=== PATIENT | female | born 1985 | race Caucasian/White ===

== ENCOUNTER 2016-03-02 13:00 | Emergency (ER) | payer MEDICAID ==
[2016-03-02 13:24] VITALS: BP 116/78; PULSE 90; RESP 14; O2SAT 97
--- NOTE | 2016-03-02 14:09 | DX ---
Left Shoulder, Three Views 1:43 p.m. Clinical History: 30-year-old female with pain after a fall. Comparison Study: None. Findings: Bone mineralization is preserved . The glenohumeral and acromioclavicular joints are anatom ically aligned. The acromiohumeral and coracoclavicular distances are appropriate. The scapula is int act, as are the visualized portions of the left rib cage. There is a mild thoracic curvature. Impression: There is no acute osseous abnormality identified. If there is further clinical concern regarding the patient's shoulder pain, consider MR imaging.
--- NOTE | 2016-03-02 14:39 | UCPHY ---
H & P Time Seen by Provider: 03/02/16 13:16 Patient Type: Established HPI/ROS: 30-year-old female presents complaining of difficulty moving her left shoulder she is concerned she may have a shoulder dislocation, she injured approximately 2 weeks ago when she was dragged by her new 65 lb Greyhound dog while out on a walk on his retractable leash, she states she then again re-injured it today when she slipped on some ice behind the dumpster is a at her condominium today. Review of systems General no fever no chills no weakness HEENT no eye pain no eye discharge. No eye redness, no sore throat Respiratory no cough, no shortness of breath Cardiac no chest pain, no peripheral edema GI no abdominal pain, no diarrhea, no constipation, no nausea, no vomiting no flank pain, no hematuria, no dysuria Musculoskeletal positivemyalgias, Positive joint pain Heme no easy bruising, no easy bleeding Endo no polyuria, no polydipsia Skin no rashes, no pruritus Neuro no syncope, no dizziness, no headaches Psych is no suicidal ideation, no homicidal ideation Past Medical/Surgical History: anxiety depression Social History: denies alcohol or drug use Smoking Status: Heavy smoker Physical Exam: 30-year-old female alert and oriented in moderate distress secondary to left shoulder pain atraumatic normocephalic neck supple lungs clear to auscultation bilaterally left shoulder positive AC tenderness, decreased range of motion secondary to pain, no gross deformity no evidence of dislocation distal pulses intact, good range of motion at elbow wrist digits, sensation intact Constitutional: Initial Vital Signs Heart Rate 90 03/02/16 13:21 Respiratory Rate 14 03/02/16 13:21 Blood Pressure 116/78 03/02/16 13:21 O2 Sat (%) 97 03/02/16 13:21 O2 Delivery Mode Room Air Allergies/Adverse Reactions: amoxicillin [Amoxicillin] Allergy (Severe, Verified 03/02/16 13:25) Anaphylaxis cephalexin monohydrate [From Keflex] Allergy (Severe, Verified 03/02/16 13:25) Anaphylaxis hydrocodone bitartrate [From Vicodin] Allergy (Severe, Verified 03/02/16 13:25) Anaphylaxis iodine [Iodine] Allergy (Severe, Verified 03/02/16 13:25) Anaphylaxis latex [Latex] Allergy (Severe, Verified 03/02/16 13:25) Anaphylaxis povidone-iodine [From Betadine] Allergy (Severe, Verified 03/02/16 13:25) Anaphylaxis soap [From Betadine] Allergy (Severe, Verified 03/02/16 13:25) Anaphylaxis pregabalin [From Lyrica] Allergy (Mild, Verified 03/02/16 13:25) Rash fluoxetine HCl [From Prozac] Allergy (Verified 03/02/16 13:25) Sulfa (Sulfonamide Antibiotics) Allergy (Verified 03/02/16 13:25) sumatriptan [From Imitrex] Allergy (Verified 03/02/16 13:25) sumatriptan succinate [From Imitrex] Allergy (Verified 03/02/16 13:25) migergot Allergy (Uncoded 03/02/16 13:25) Home Medications: Medication Instructions Recorded Albuterol 10/14/14 Ativan 10/14/14 CLONAZEPAM 10/14/14 Epinephrine 10/14/14 KETOROLAC TROMETHAMINE 10/14/14 Metoclopramide 10/14/14 Omeprazole 10/14/14 Oxycodone Ir 10/14/14 clonazePAM [klonoPIN (*)] 1 mg PO HS #3 tab 01/13/15 AZITHROMYCIN [Z-PACK] 250 mg PO DAILY #6 tab 12/24/15 predniSONE 60 mg PO DAILY #9 tab 12/24/15 Medical Decision Making - Diagnostics Imaging: left shoulder film no dislocation, no fracture ED Course/Re-evaluation: patient seen and evaluated for left shoulder pain after a fall 2 weeks ago and repeat injury today impression acute left shoulder sprain, possible rotator cuff injury AC separation mild plan sling and swath / shoulder immobilizer patient advised to follow up with Orthopedics for further evaluation of her shoulder Departure - Departure Disposition: Home, Routine, Self-Care Clinical Impression: Left shoulder strain, AC separation Condition: Good Instructions: Acromioclavicular Separation (ED), Shoulder Sprain (ED) [place]errals: [place],. [Primary Care Provider] - As per Instructions Julito Aiken MD [Medical Doctor] - As per Instructions - PQRS PQRS Measurement: na
== END 2016-03-02 15:25 | disposition home or self-care (01) ==
LOC: CED 13:00
DX: S43.402A Unspecified sprain of left shoulder joint, initial encounter (principal); W00.0XXA Fall on same level due to ice and snow, initial encounter; Y93.K1 Activity, walking an animal; Z72.0 Tobacco use
CPT/HCPCS: 73030-PO; 99214-PO; G0463-PO

== ENCOUNTER → 2016-07-13 | Outpatient (CLI) | payer MEDICAID | LOC: FIMAGING 12:56 | PROVIDERS: ATTEND Internal Medicine Hematology & Oncology | DX: R53.1 Weakness (principal) | CPT/HCPCS: 84481-90; G0472 ==

== ENCOUNTER 2016-07-19 13:14 | Emergency (ER) | payer MEDICAID ==
[2016-07-19] MEDS ORDERED: METOCLOPRAMIDE 10 MG/2 ML VIAL IVP ONE (13:31)
[2016-07-19] MEDS ORDERED: KETOROLAC 30 MG/1 ML SDV IVP ONE (13:31)
[2016-07-19] MEDS ORDERED: NS 1,000 ML IV ONE (13:31)
--- NOTE | 2016-07-19 13:36 | EDPHY ---
H & P Time Seen by Provider: 07/19/16 13:31 HPI/ROS: CHIEF COMPLAINT:Migraine headache HISTORY OF PRESENT ILLNESS: this is a 31-year-old female with history of migraine headaches who presents with headache that has been present since last night. She has taken Reglan and Ativan at home. She usually takes Reglan, Ativan, and Toradol but she is out of Toradol. Her headache Has persisted, prompting her to present to the emergency department. The headache is global with associated photophobia and nausea. She has not vomited. This headache is consistent with her previous migraine headaches. No fever or stiff neck. she denies weakness or numbness. REVIEW OF SYSTEMS: A ten point review of systems was performed and is negative with the exception of the items mentioned in the HPI. Source: Patient - Personal History Tetanus Vaccine Date: WITHIN 10 YRS - Medical/Surgical History Hx Asthma: Yes Hx Chronic Respiratory Disease: No Hx Diabetes: No Hx Cardiac Disease: No Hx Renal Disease: No Hx Cirrhosis: No Hx Alcoholism: No Hx HIV/AIDS: No Hx Splenectomy or Spleen Trauma: No Other PMH: Migraines. CHronic pain. mult allergies. [facility] Flu - Social History Smoking Status: Heavy smoker Additional Social History: She lives with family. She is single. - Physical Exam Exam: General Appearance: Alert. Vital signs reviewed. Lying in a darkened room, crying. Eyes: Pupils equal and round, no conjunctival injection, no discharge. Anicteric. ENT, Mouth: Mucous membranes are moist, no oropharyngeal erythema or edema. Neck: No lymphadenopathy, supple.No meningeal signs. Respiratory: Lungs are clear to auscultation; no wheezes, rales, or rhonchi. Cardiovascular: Regular rate and rhythm; no murmur, rub, or gallop. Gastrointestinal: Abdomen is soft and nontender, no masses or organomegaly, bowel sounds normal. Skin: Warm and dry, no rashes on exposed skin, normal color. Back: Nontender to palpation over the thoracolumbar spine. No CVAT. Extremities: No lower extremity edema, no calf tenderness or swelling. Neurological: Alert and oriented. Moving all four extremities easily and equally. DRE. EOMI. Tongue midline. Facial expression symmetric. Housing Inspectors 5/5. Sensation intact to light touch over face in all 4 extremities. Psychiatric: Normal affect. Constitutional: Initial Vital Signs Temperature (C) 36.5 C 07/19/16 13:20 Heart Rate 77 07/19/16 13:20 Respiratory Rate 16 07/19/16 13:20 Blood Pressure 121/82 H 07/19/16 13:20 O2 Sat (%) 97 07/19/16 13:20 O2 Delivery Mode Room Air Allergies/Adverse Reactions: amoxicillin [Amoxicillin] Allergy (Severe, Verified 07/19/16 13:29) Anaphylaxis cephalexin monohydrate [From Keflex] Allergy (Severe, Verified 07/19/16 13:29) Anaphylaxis hydrocodone bitartrate [From Vicodin] Allergy (Severe, Verified 07/19/16 13:29) Anaphylaxis iodine [Iodine] Allergy (Severe, Verified 07/19/16 13:29) Anaphylaxis latex [Latex] Allergy (Severe, Verified 07/19/16 13:29) Anaphylaxis povidone-iodine [From Betadine] Allergy (Severe, Verified 07/19/16 13:29) Anaphylaxis soap [From Betadine] Allergy (Severe, Verified 07/19/16 13:29) Anaphylaxis pregabalin [From Lyrica] Allergy (Mild, Verified 07/19/16 13:29) Rash fluoxetine HCl [From Prozac] Allergy (Verified 07/19/16 13:29) Sulfa (Sulfonamide Antibiotics) Allergy (Verified 07/19/16 13:29) sumatriptan [From Imitrex] Allergy (Verified 07/19/16 13:29) sumatriptan succinate [From Imitrex] Allergy (Verified 07/19/16 13:29) migergot Allergy (Uncoded 07/19/16 13:29) Home Medications: Medication Instructions Recorded Albuterol 10/14/14 Ativan 10/14/14 Epinephrine 10/14/14 KETOROLAC TROMETHAMINE 10/14/14 Omeprazole 10/14/14 Oxycodone Ir 10/14/14 Ketorolac Tromethamine [Toradol] 10 mg PO Q6H #16 tab 07/19/16 Lorazepam 07/19/16 Reglan 07/19/16 Zofran 07/19/16 Medical Decision Making ED Course/Re-evaluation: Migraine headache consistent with her previous migraines. IV was started and she was given Toradol 30 mg IV and Reglan 10 mg IV. 1 L normal saline infused. She did not want to take more Ativan. She was re-evaluated at 2:45 p.m. after receiving Toradol, Reglan, and 1 L of normal saline. She is feeling much better but still has some residual headache. She feels that she can return home. I have written a prescription for oral Toradol. She understands how to use this medication. She understands the danger signs that should prompt her to return. Differential Diagnosis: Headache including but not limited to subarachnoid hemorrhage, migraine headache , tension headache and infectious causes such as meningitis, pharyngitis and sinusitis. - Data Points Medications Given: Discontinued Medications Sodium Chloride (Ns) 1,000 mls @ 0 mls/hr IV ONCE ONE PRN Reason: Wide Open Stop: 07/19/16 13:32 Last Admin: 07/19/16 13:44 Dose: 1,000 mls Ketorolac Tromethamine (Toradol) 30 mg IVP EDNOW ONE Stop: 07/19/16 13:32 Last Admin: 07/19/16 13:49 Dose: 30 mg Metoclopramide HCl (Reglan Injection) 10 mg IVP EDNOW ONE Stop: 07/19/16 13:32 Last Admin: 07/19/16 13:47 Dose: 10 mg Departure - Departure Disposition: Home, Routine, Self-Care Clinical Impression: Migraine Qualifiers: Migraine type: unspecified Status migrainosus presence: without status migrainosus Intractability: not intractable Qualified Code(s): G43.909 - Migraine, unspecified, not intractable, without status migrainosus Condition: Good Instructions: Migraine Headache (ED) [facility] - As per Instructions Prescriptions: Ketorolac Tromethamine [Toradol] 10 mg PO Q6H #16 tab
[2016-07-19 15:10] VITALS: BP 103/71; PULSE 68; RESP 18; TEMP 99; O2SAT 95
== END 2016-07-19 15:09 | disposition home or self-care (01) ==
LOC: CED 13:14
DX: G43.909 Migraine, unspecified, not intractable, without status migrainosus (principal); F17.200 Nicotine dependence, unspecified, uncomplicated; J45.909 Unspecified asthma, uncomplicated; Z91.040 Latex allergy status
CPT/HCPCS: 96374; J1885; J2765

== ENCOUNTER → 2016-09-14 | Outpatient (CLI) | payer MEDICAID | LOC: CIMAGING 18:01 | PROVIDERS: ATTEND Internal Medicine Hematology & Oncology | DX: N94.89 Other specified conditions associated with female genital organs and menstrual cycle (principal) | CPT/HCPCS: 76830-PO ==

== ENCOUNTER 2017-12-06 10:15 | Emergency (ER) | payer MEDICAID ==
--- NOTE | 2017-12-06 10:29 | EDPHY ---
H & P Time Seen by Provider: 12/06/17 10:26 HPI/ROS: Chief complaint. Ankle injury HPI. 32-year-old female presents emergency department with left ankle injury. Her dog which she tells me weighs 100 lb was caring a rock high bone and hit her in the outer aspect of the left ankle last night with the raw high bone. Hurts to walk. She has some tingling underneath her foot. She has no history of fracture. Denies foot or knee injury. ROS 10 systems were reviewed and negative with the exception of the elements mentioned in the history of present illness Past Medical/Surgical History: Migraines, chronic pain, allergies Social History: Single, daily smoker, no alcohol Smoking Status: Heavy smoker Physical Exam: General Appearance: Alert well-developed female mild distress vital signs are stable Eyes: Pupils equal and round no pallor or injection. ENT, Mouth: Mucous membranes are moist. Respiratory: There are no retractions, lungs are clear to auscultation. Cardiovascular: Regular rate and rhythm. Gastrointestinal: Abdomen is soft and nontender, no masses, bowel sounds normal. Neurological: Awake and alert, sensory and motor exams grossly normal. Skin: Warm and dry, no rashes. Musculoskeletal: Neck is supple nontender. Extremities tenderness around the lateral malleolus left ankle. No obvious swelling or deformity. No surface trauma. Sense of paresthesia to the sole of the foot. Psychiatric: Patient is oriented X 3, there is no agitation. Constitutional: Initial Vital Signs Temperature (C) 36.6 C 12/06/17 10:30 Heart Rate 95 12/06/17 10:30 Respiratory Rate 14 12/06/17 10:30 Blood Pressure 123/83 H 12/06/17 10:30 O2 Sat (%) 93 12/06/17 10:30 O2 Delivery Mode Room Air Allergies/Adverse Reactions: amoxicillin [Amoxicillin] Allergy (Severe, Verified 12/06/17 10:26) Anaphylaxis cephalexin monohydrate [From Keflex] Allergy (Severe, Verified 12/06/17 10:26) Anaphylaxis hydrocodone bitartrate [From Vicodin] Allergy (Severe, Verified 12/06/17 10:26) Anaphylaxis iodine [Iodine] Allergy (Severe, Verified 12/06/17 10:26) Anaphylaxis latex [Latex] Allergy (Severe, Verified 12/06/17 10:26) Anaphylaxis povidone-iodine [From Betadine] Allergy (Severe, Verified 12/06/17 10:26) Anaphylaxis soap [From Betadine] Allergy (Severe, Verified 12/06/17 10:26) Anaphylaxis pregabalin [From Lyrica] Allergy (Mild, Verified 12/06/17 10:26) Rash fluoxetine HCl [From Prozac] Allergy (Verified 12/06/17 10:26) Sulfa (Sulfonamide Antibiotics) Allergy (Verified 12/06/17 10:26) sumatriptan [From Imitrex] Allergy (Verified 12/06/17 10:26) sumatriptan succinate [From Imitrex] Allergy (Verified 12/06/17 10:26) migergot Allergy (Uncoded 07/19/16 13:29) Home Medications: Medication Instructions Recorded Albuterol 10/14/14 Epinephrine PRN 10/14/14 KETOROLAC TROMETHAMINE 10/14/14 Omeprazole 10/14/14 Oxycodone Ir 10/14/14 Lorazepam PRN 07/19/16 Reglan 07/19/16 Zofran 07/19/16 Ketorolac Tromethamine [Toradol] 10 mg PO PRN PRN 12/06/17 Medical Decision Making - Diagnostics Imaging Results: X-ray left ankle reviewed by me and my interpretation is negative for fracture dislocation ED Course/Re-evaluation: Re-evaluation 11:10 a.m.. Patient is stable. She and I discussed imaging study results, treatment plan including criteria for return importance of follow -up further evaluation. She expresses understanding and agreement Differential Diagnosis: I considered fracture, dislocation, contusion Departure - Departure Disposition: Home, Routine, Self-Care Clinical Impression: Contusion of ankle, left Qualifiers: Encounter type: initial encounter Qualified Code(s): S90.02XA - Contusion of left ankle, initial encounter Condition: Good Instructions: Contusion in Adults (ED) Additional Instructions: Ice and elevation next 24-48 hours. Ibuprofen 600 mg every 6 hr as needed for discomfort Activity as tolerated Re-evaluation in 3-4 days for continuing symptoms [facility] - 3-4 days, if not improved
[2017-12-06 10:37] VITALS: BP 123/83
== END 2017-12-06 11:20 | disposition home or self-care (01) ==
LOC: CED 10:15
DX: S90.02XA Contusion of left ankle, initial encounter (principal); W22.8XXA Striking against or struck by other objects, initial encounter; F17.200 Nicotine dependence, unspecified, uncomplicated; Y92.9 Unspecified place or not applicable
CPT/HCPCS: 73610-PO

== ENCOUNTER 2018-08-21 17:50 | Emergency (ER) | payer MEDICAID | END 2018-08-21 19:05 | disposition home or self-care (01) | LOC: CED 17:50 ==